=== PATIENT | male | born 1930 | race Caucasian/White ===

== ENCOUNTER 2018-04-28 10:38 | Emergency (ER) | payer OTHER ==
[~2018-04-28] VITALS: Ht 170.2 cm; Wt 70.8 kg
[~2018-04-28 10:38] MED LIST: GILTUSS TR TAB1 EACH PO
[2018-04-28] MEDS ORDERED: LISINOPRIL10 MG PO (10:58)
[2018-04-28] MEDS ORDERED: SERTRALINE HCL50 MG PO (10:59)
[2018-04-28] MEDS ORDERED: ACID CONTROL150 MG PO (10:59)
[2018-04-28] MEDS ORDERED: METFORMIN HCL500 M2 PO (10:59)
[2018-04-28] MEDS ORDERED: LIPITOR40 MG PO (11:00)
[2018-04-28] MEDS ORDERED: MELATONIN3 M3 PO (11:00)
== END 2018-04-28 13:39 | disposition home or self-care (01) ==
LOC: ER 10:38
DX: M79.1 Myalgia (principal); R10.11 Right upper quadrant pain; R07.89 Other chest pain

== ENCOUNTER → 2018-05-11 09:45 | Outpatient (CLI) | payer OTHER | END | disposition home or self-care (01) | LOC: LAB 09:45 | DX: I10 Essential (primary) hypertension (principal); E11.9 Type 2 diabetes mellitus without complications; E03.8 Other specified hypothyroidism; E78.2 Mixed hyperlipidemia; R10.84 Generalized abdominal pain ==

== ENCOUNTER → 2018-05-11 | Outpatient (CLI) | payer OTHER ==
[~2018-05-11] MED LIST changes: +ACID CONTROL150 MG PO; +LIPITOR40 MG PO; +LISINOPRIL10 MG PO; +MELATONIN3 M3 PO; +METFORMIN HCL500 M2 PO; +SERTRALINE HCL50 MG PO
== END | disposition home or self-care (01) ==
LOC: MAMO-SONO 08:15 → SONOGRAMA 10:21
DX: R10.84 Generalized abdominal pain (principal)

== ENCOUNTER 2018-08-17 14:58 | Outpatient (CLI) | payer OTHER ==
[~2018-08-17 14:58] MED LIST changes: +MOBIC15 MG PO
== END 2018-08-17 15:00 | disposition home or self-care (01) ==
LOC: LAB 14:58
DX: I10 Essential (primary) hypertension (principal); E11.9 Type 2 diabetes mellitus without complications; E03.8 Other specified hypothyroidism; E78.2 Mixed hyperlipidemia; K92.1 Melena; D64.0 Hereditary sideroblastic anemia; R10.9 Unspecified abdominal pain

== ENCOUNTER 2018-10-07 14:31 | Inpatient (IN) | payer OTHER ==
[~2018-10-07] VITALS: Ht 170.2 cm; Wt 70.3 kg
== END 2018-10-17 14:57 | DRG 416 ==
LOC: ER 14:31 → MEDJ 10-08 13:16 → SEC-K 10-08 13:16 → SURH 10-08 13:16 → MEDJ 10-08 14:38 → SURH 10-10 14:50
PROVIDERS: Specialist; ADMIT Internal Medicine Cardiovascular Disease
PROC: CF1C1ZZ Planar Nuclear Medicine Imaging of Hepatobiliary System, All using Technetium 99m (Tc-99m) (ICD-10-PCS; 2018-10-09)
PROC: 0FJ44ZZ Inspection of Gallbladder, Percutaneous Endoscopic Approach (ICD-10-PCS; 2018-10-10)
PROC: 0T9B70Z Drainage of Bladder with Drainage Device, Via Natural or Artificial Opening (ICD-10-PCS; 2018-10-10)
PROC: 0FT40ZZ Resection of Gallbladder, Open Approach (ICD-10-PCS; principal; 2018-10-10 11:45)
PROC: BF37ZZZ Magnetic Resonance Imaging (MRI) of Pancreas (ICD-10-PCS; 2018-10-12)
DX: K80.12 Calculus of gallbladder with acute and chronic cholecystitis without obstruction (principal); K80.00 Calculus of gallbladder with acute cholecystitis without obstruction; E11.9 Type 2 diabetes mellitus without complications; Z79.4 Long term (current) use of insulin; I10 Essential (primary) hypertension; J00 Acute nasopharyngitis [common cold]; F43.20 Adjustment disorder, unspecified; M19.012 Primary osteoarthritis, left shoulder; M17.0 Bilateral primary osteoarthritis of knee

== ENCOUNTER 2018-10-22 04:28 | Inpatient (IN) | payer OTHER ==
[~2018-10-22] VITALS: Ht 167.6 cm; Wt 63.5 kg
--- NOTE | 2018-10-22 04:43 | NUR ---
SE RECIBE PTE ALERTA Y OREINTADO EN LAS 3 ESFERAS EN AMBULANCIA EN COMPANIA DE FAMILIAR Y PARAMEDICOS. PTE OPERADO (REMOCION DE VESICULA) POR HACE FRANKLIN SEMANA. PTE REFIERE QUE HOY COMENZO CON DOLOR ABDOMINAL.
--- NOTE | 2018-10-22 05:05 | NUR ---
PT ALERTA Y ORIENTADO X3 ESFERAS SE LE ORIENTA SOBRE TX Y REFIERE ENTEDER. SE LASHELL MUESTRAS DE MARTINA Y VENOPUNCION CON TECNICAS ASEPTICAS. SE ADMINISTRAN MEDICAMENTOS ORDENADOS. PT TOLERA TX. PT MANEJADA POR MS BURAK.
--- NOTE | 2018-10-22 06:06 | NUR ---
SE OBSERVA HERIDA QUIRURGICA EN LADO DERECHO DEL ABDOMEN. SE OBSERVA HEMATOMAS EN AREA ABDOMINAL. SE REALIZA EKG Y SE PRESENTA A NERY.CLAU.
--- NOTE | 2018-10-22 07:55 | NUR ---
SE RECIBE PTE ALERTA Y CONCIENTE POR 3 EN CAMA CON BARANDAS ELEVADA Y TIMBRE ACCESIBLE SE OSBERVA VENOPUNCION PATENTE Y JUAREZ DE EDEMA PTE SE MANTIENE EN OBSERVACION Y BAJO TRATAMIENTO.EN ESPERA DEL INTERNISTA PTE EN ESPERA DE UN MRCP
== END 2018-10-26 14:46 | disposition home or self-care (01) | DRG 440 ==
LOC: ER 04:28 → SEC-K 10:04 → SURH 10:04 → SEC-K 11:56 → SURG 15:22 → SURH 15:39
PROVIDERS: ADMIT Internal Medicine Cardiovascular Disease
PROC: BF37ZZZ Magnetic Resonance Imaging (MRI) of Pancreas (ICD-10-PCS; principal; 2018-10-22)
PROC: 8E0ZXY6 Isolation (ICD-10-PCS; 2018-10-22)
DX: K85.90 Acute pancreatitis without necrosis or infection, unspecified (principal); Z90.49 Acquired absence of other specified parts of digestive tract; I10 Essential (primary) hypertension; E11.9 Type 2 diabetes mellitus without complications; Z79.4 Long term (current) use of insulin; G30.0 Alzheimer's disease with early onset; F02.80 Dementia in other diseases classified elsewhere, unspecified severity, without behavioral disturbance, psychotic disturbance, mood disturbance, and anxiety; M17.12 Unilateral primary osteoarthritis, left knee; M17.11 Unilateral primary osteoarthritis, right knee; M19.011 Primary osteoarthritis, right shoulder; M19.012 Primary osteoarthritis, left shoulder